=== PATIENT | male | born 1995 | race Caucasian/White ===

== ENCOUNTER 2018-09-16 20:55 | Emergency (ER) | payer MEDICAID ==
[~2018-09-16] VITALS: Ht 175.3 cm; Wt 113.6 kg
[2018-09-16 21:44] VITALS: Ht 175.3 cm; Wt 113.6 kg
[2018-09-17] MEDS ORDERED: TORADOL10 MG PO (02:51)
[2018-09-17 03:15] VITALS: BP 132/74
== END 2018-09-17 03:15 | disposition home or self-care (01) ==
LOC: D.ER 20:55
DX: S99.921A Unspecified injury of right foot, initial encounter (principal); W20.8XXA Other cause of strike by thrown, projected or falling object, initial encounter; Y93.89 Activity, other specified; Y92.89 Other specified places as the place of occurrence of the external cause